=== PATIENT | female | born 1980 | race Caucasian/White ===

== ENCOUNTER 2020-06-09 03:56 | Emergency (ER) | payer OTHER ==
--- NOTE | 2020-06-09 04:01 | EDM.PDOC ---
ED HPI GENERAL MEDICAL PROBLEM - General Chief Complaint: Allergic Reaction Stated Complaint: LEFT SIDE OF FACE IS SWOLLEN Time Seen by Provider: 06/09/20 03:57 Source of Information: Reports: Patient History Limitations: Reports: No Limitations - History of Present Illness INITIAL COMMENTS - FREE TEXT/NARRATIVE: 39-year-old female presents for left-sided facial swelling and pain. Patient notes that she has a dental infection and yesterday started oral clindamycin. She noticed last night and this morning worsening swelling and pain in the left side of her face. She is able to swallow and has no shortness of breath Left Face/Facial Pain Score (Numeric/FACES): 7 - Related Data Allergies Allergy/AdvReac Type Severity Reaction Status Date / Time Penicillins Allergy Anaphylactic Verified 06/09/20 04:09 Shock Sulfa (Sulfonamide Allergy Anaphylactic Verified 06/09/20 04:09 Antibiotics) Shock Home Meds: Home Meds Buprenorphine HCl/Naloxone HCl [Suboxone 12 mg-3 mg Sl Film] 1 dose PO ASDIRECTED 06/09/20 [History] Clindamycin HCl 150 mg PO DAILY 06/09/20 [History] ED ROS GENERAL - Review of Systems Review Of Systems: Comprehensive ROS is negative, except as noted in HPI. ED EXAM, GENERAL - Physical Exam Exam: See Below Exam Limited By: No Limitations General Appearance: Alert, WD/WN, No Apparent Distress Throat/Mouth: Normal Oropharynx, Normal Voice, No Airway Compromise, Other (poor dentition, erythema of left upper gingiva) Head: Atraumatic, Normocephalic, Other (swelling of left sided maxillary face w/ TTP) Neck: Normal Inspection, Supple, Non-Tender Respiratory/Chest: No Respiratory Distress, Lungs Clear, Normal Breath Sounds, No Accessory Muscle Use Cardiovascular: Normal Peripheral Pulses Extremities: Normal Inspection Neurological: Alert Psychiatric: Normal Affect, Normal Mood Skin Exam: Warm, Dry, Intact, Normal Color Course - Vital Signs Last Recorded V/S: Last Vital Signs Temp 97.2 F 06/09/20 04:10 Pulse 100 06/09/20 04:10 Resp 18 06/09/20 04:10 BP 161/89 H 06/09/20 04:10 Pulse Ox 98 06/09/20 04:10 - Orders/Labs/Meds Orders: Active Orders 24 hr Category Date Time Status Sodium Chloride 0.9% [Saline Flush] Med 06/09/20 04:07 Active 10 ml FLUSH ASDIRECTED PRN Sodium Chloride 0.9% [Saline Flush] Med 06/09/20 04:07 Active 2.5 ml FLUSH ASDIRECTED PRN Saline Lock Insert [OM.PC] Stat Oth 06/09/20 04:07 Ordered Labs: Laboratory Tests 06/09/20 06/09/20 Range/Units 04:20 04:20 WBC 10.18 (4.0-11.0) K/uL RBC 4.49 (4.30-5.90) M/uL Hgb 14.7 (12.0-16.0) g/dL Hct 42.8 (36.0-46.0) % MCV 95.3 (80.0-98.0) fL MCH 32.7 H (27.0-32.0) pg MCHC 34.3 (31.0-37.0) g/dL RDW Std Deviation 43.6 (28.0-62.0) fl RDW Coeff of Taryn 13 (11.0-15.0) % Plt Count 266 (150-400) K/uL MPV 9.40 (7.40-12.00) fL Neut % (Auto) 62.2 (48.0-80.0) % Lymph % (Auto) 24.0 (16.0-40.0) % [place] % (Auto) 8.8 (0.0-15.0) % Eos % (Auto) 4.7 (0.0-7.0) % Baso % (Auto) 0.3 (0.0-1.5) % Neut # (Auto) 6.3 H (1.4-5.7) K/uL Lymph # (Auto) 2.4 (0.6-2.4) K/uL [place] # (Auto) 0.9 H (0.0-0.8) K/uL Eos # (Auto) 0.5 (0.0-0.7) K/uL Baso # (Auto) 0.0 (0.0-0.1) K/uL Nucleated RBC % 0.0 /100WBC Nucleated RBCs # 0 K/uL Sodium 139 (136-145) mmol/L Potassium 4.0 (3.5-5.1) mmol/L Chloride 104 (98-107) mmol/L Carbon Dioxide 29.0 (21.0-32.0) mmol/L BUN 11 (7.0-18.0) mg/dL Creatinine 0.7 (0.6-1.0) mg/dL Est Cr Clr Drug Dosing 79.04 mL/min Estimated GFR (MDRD) > 60.0 ml/min Glucose 118 H (74-106) mg/dL Calcium 8.6 (8.5-10.1) mg/dL Total Bilirubin 0.7 (0.2-1.0) mg/dL AST 12 L (15-37) IU/L ALT 16 (14-63) IU/L Alkaline Phosphatase 61 (46-116) U/L Total Protein 7.6 (6.4-8.2) g/dL Albumin 4.0 (3.4-5.0) g/dL Globulin 3.6 (2.6-4.0) g/dL Albumin/Globulin Ratio 1.1 (0.9-1.6) - Re-Assessments/Exams Free Text/Narrative Re-Assessment/Exam: 06/09/20 04:18 Patient symptoms are most consistent with a dental infection. Will get basic labs, CT scan of the face. Will give Toradol for pain. Will give Decadron for inflammation. Will give 1 dose IV Cleocin for infection. 06/09/20 05:08 Labs are unremarkable. We will follow-up CT imaging and disposition accordingly. 06/09/20 05:[address] is remarkable for a dental abscess. She will need to follow-up with dentist. Recommend continuing clindamycin. Departure - Departure Time of Disposition: 05:47 Disposition: Home, Self-Care 01 Condition: Good Clinical Impression: Dental abscess - Discharge Information Instructions: Dental Abscess Referrals: Gail Simms NP [Primary Care Provider] - Forms: ED Department Discharge Additional Instructions: The following information is given to patients seen in the emergency department who are being discharged to home. This information is to outline your options for follow-up care. We provide all patients seen in our emergency department with a follow-up referral. The need for follow-up, as well as the timing and circumstances, are variable depending upon the specifics of your emergency department visit. If you don't have a primary care physician on staff, we will provide you with a referral. We always advise you to contact your personal physician following an emergency department visit to inform them of the circumstance of the visit and for follow-up with them and/or the need for any referrals to a consulting specialist. The emergency department will also refer you to a specialist when appropriate. This referral assures that you have the opportunity for follow-up care with a specialist. All of these measure are taken in an effort to provide you with optimal care, which includes your follow-up. Under all circumstances we always encourage you to contact your private physician who remains a resource for coordinating your care. When calling for follow-up care, please make the office aware that this follow-up is from your recent emergency room visit. If for any reason you are refused follow-up, please contact the [facility] Emergency Department at and asked to speak to the emergency department charge nurse. Please follow up with your primary care physician. If you do not have a primary care physician, see below: [facility] [address] [place] [id number] [facility] [address] [place] [id number] [facility] [address] [place] [id number] Sepsis Event Note (ED) - Focused Exam Vital Signs: Vital Signs Temp Pulse Resp BP Pulse Ox 06/09/20 04:10 97.2 F 100 18 161/89 H 98 - My Orders Last 24 Hours: My Active Orders 06/09/20 04:07 Sodium Chloride 0.9% [Saline Flush] 10 ml FLUSH ASDIRECTED PRN Sodium Chloride 0.9% [Saline Flush] 2.5 ml FLUSH ASDIRECTED PRN Saline Lock Insert [OM.PC] Stat - Assessment/Plan Last 24 Hours: My Active Orders 06/09/20 04:07 Sodium Chloride 0.9% [Saline Flush] 10 ml FLUSH ASDIRECTED PRN Sodium Chloride 0.9% [Saline Flush] 2.5 ml FLUSH ASDIRECTED PRN Saline Lock Insert [OM.PC] Stat
[2020-06-09] MEDS ORDERED: Sodium Chloride 0.9% 10 ML Syringe FLUSH PRN (04:07)
[2020-06-09] MEDS ORDERED: Sodium Chloride 0.9% 2.5 ML Syringe FLUSH PRN (04:07)
[2020-06-09] MEDS ORDERED: Ketorolac 30 MG/ML SDV IVPUSH ONE (04:09)
[2020-06-09] MEDS ORDERED: Dexamethasone 10 MG/ML SDV IVPUSH ONE (04:15)
[2020-06-09] MEDS ORDERED: Clindamycin Phosphate in D5W 50 ML IV ONE (04:17)
[2020-06-09] MEDS ORDERED: Clindamycin Phosphate in D5W 300 MG in Premix Bag 1 BAG IV ONE ×2 (04:17)
[2020-06-09 04:54] LABS: BLOOD UREA NITROGEN,BUN 11 mg/dL (7.0-18.0); CHLORIDE,CL 104 mmol/L (98-107); GLUCOSE RANDOM 118 mg/dL (74-106); SODIUM,NA 139 mmol/L (136-145)
[2020-06-09] MEDS ORDERED: Iopamidol 755 MG/ML 500 ML Multipack Bottle IVPUSH STA (05:17)
--- NOTE | 2020-06-09 05:44 | CT ---
Indication: Left-sided facial swelling, suspect dental source Technique: Contrast enhanced axial CT images through the face. 75 mL Isovue 370 contrast agent was administered intravenously. Sagittal and coronal reconstructions are provided. Comparison: None Findings: There is subcutaneous edema of the left cheek, consistent with cellulitis. There is an underlying small subperiosteal abscess along the left anterior alveolar ridge of the maxilla measuring 10 x 4 x 12 mm. Large carious lesions are seen involving the left 1st and 3rd maxillary molars. Subtle periapical erosions involving both teeth are consistent with periodontal disease. These likely represents source of infection. Advanced dental caries and periodontal are also noted involving all of the left mandibular molars and several additional teeth. There is mild mucosal thickening in the floor of the left maxillary sinus, likely secondary to adjacent dental disease. Remainder of the paranasal sinuses are clear. The mastoid air cells and middle ear cavities are aerated. The orbital contents are unremarkable. Impression: 1. Small left maxillary subperiosteal abscess measuring up to 12 mm, most likely secondary to periodontal disease of the left 1st and 3rd maxillary molars. 2. Advanced dental caries and periodontal disease involving several additional teeth. Dental follow-up is recommended. Please note that all CT scans at this facility use dose modulation, iterative reconstruction, and/or weight-based dosing when appropriate to reduce radiation dose to as low as reasonably achievable. Dictated by Cherri Russo MD @ Jun 09 2020 5:32AM Signed by Dr. Cherri Russo @ Jun 09 2020 5:42AM
== END 2020-06-09 05:58 | disposition home or self-care (01) ==
LOC: MW.ED 03:56
DX: K04.7 Periapical abscess without sinus (principal); Z88.0 Allergy status to penicillin; Z88.2 Allergy status to sulfonamides
CPT/HCPCS: 36415; 70487; 80053; 85025; 96365; 96375; 99284; J1100; J1885; J3490; Q9967; 99282

== ENCOUNTER 2022-02-15 11:41 | Emergency (ER) | payer BC, OTHER ==
[2022-02-15] MEDS ORDERED: Lidocaine 5% 700 MG Patch TOP ONE (14:03)
[2022-02-15] MEDS ORDERED: Acetaminophen 325 MG Tab PO ONE (14:04)
[2022-02-15] MEDS ORDERED: Ibuprofen 400 MG Tab PO ONE (14:04)
== END 2022-02-15 14:47 | disposition home or self-care (01) ==
LOC: MW.ED 11:41
DX: M25.511 Pain in right shoulder (principal)
CPT/HCPCS: 73030; 99283; A9270

== ENCOUNTER 2022-04-12 05:25 | Emergency (ER) | payer BC | END 2022-04-12 06:15 | disposition home or self-care (01) | LOC: MW.ED 05:25 | DX: H66.91 Otitis media, unspecified, right ear (principal); Z88.0 Allergy status to penicillin; Z88.2 Allergy status to sulfonamides | CPT/HCPCS: 99282 ==